=== PATIENT | female | born 1980 | race Caucasian/White ===

== ENCOUNTER → 2020-08-31 | Outpatient (CLI) | payer OTHER ==
[2020-08-31 12:07] LABS: MEAN CORP HGB 26.3 pg (26-34); RED CELL DISTRIBUTION WIDTH 14.9 % (11.5-14.5)
[2020-08-31 12:27] LABS: CALCIUM 8.7 mg/dL (8.4-10.5); CARBON DIOXIDE 27.9 mmol/L (20.0-32)
== END | disposition home or self-care (01) ==
LOC: LAB 11:45
PROVIDERS: ATTEND Nurse Practitioner Family
DX: E03.9 Hypothyroidism, unspecified (principal)
CPT/HCPCS: 36415; 80053; 80061; 83036; 84439; 84443; 84480; 85027